=== PATIENT | female | born 1965 | race Caucasian/White ===

== ENCOUNTER → 2017-02-18 | Outpatient (CLI) | payer BC, OTHER ==
[~2017-02-18] MED LIST: AMT50 PO; ASCO10003 PO; CHOL20007 PO; COEN1CAP32 PO; GLUCTAB7 PO; LEVO88TA PO; LORA10CA2 PO; LOSA100T2 PO; MULT-506 PO; PRLSR20 PO; SIMV20TA2 PO
--- NOTE | 2017-02-19 12:09 | MAMMOGRAPHY REPORT ---
BILATERAL DIGITAL SCREENING MAMMOGRAM TOMOSYNTHESIS WITH CAD: 02/18/2017 CLINICAL HISTORY: Routine screening. Patient has no complaints. TECHNIQUE: Breast tomosynthesis in addition to standard 2D mammography was performed. Current study was also evaluated with a Computer Aided Detection (CAD) system. COMPARISON: Comparison is made to exams dated: 01/09/2016 mammogram, 01/04/2015 mammogram, 01/02/2014 mamm ogram, 12/17/2011 mammogram, 01/09/2011 mammogram, and 12/03/2010 mammogram - [facility] . BREAST COMPOSITION: There are scattered areas of fibroglandular density in both breasts. FINDINGS: The breast parenchymal pattern is similar to prior exams. No suspicious mass, architectura l distortion or cluster of suspicious microcalcifications is seen. IMPRESSION: ACR BI-RADS CATEGORY 1: NEGATIVE There is no mammographic evidence of malignancy. A 1 year screening mammogram is recommended. The pa tient will receive written notification of the results. Approximately 10% of breast cancers are not detected with mammography. A negative mammographic report should not delay biopsy if a clinically suggestive mass is present. Jenny Lopez M.D. ay/:02/18/2017 16:51:13 Land Checker: Marion ANGEL(Snow)(Sancho), [facility] letter sent: Normal 1/2 BI-RADS Code: ACR BI-RADS Category 1: Negative
== END | disposition home or self-care (01) ==
LOC: C.MAMM 16:14
PROVIDERS: ATTEND Specialist
DX: Z12.31 Encounter for screening mammogram for malignant neoplasm of breast (principal)

== ENCOUNTER → 2017-06-23 | Outpatient (CLI) | payer BC, OTHER ==
[~2017-06-23] MED LIST changes: +GADAVIST IV PRN
--- NOTE | 2017-06-23 22:28 | DIAGNOSTIC IMAGING REPORT ---
BRAIN COMBO FOR IAC CLINICAL HISTORY: Sudden onset left sided sensorineural hearing loss. COMPARISON STUDY: MRI of the brain December 21, [address] June 10, 2013. TECHNIQUE: Utilizing a 1.5 Mayelin magnet and dedicated coil, multiplanar, multi echo imaging of the brain was performed pre and postcontrast administration with thin cut imaging through the internal auditory canals. Injection of 9 cc of Gadavist IV was uneventful. FINDINGS: There are no areas of restricted diffusion. No acute intracranial hemorrhage, midline shift or mass effect is present. Ventricular system is normal. Brain volume is normal. Basilar cisterns are patent. There are no extra-axial collections. Flow-voids for the major intracranial vessels are present. There is no intracranial mass or pathologic enhancement. No mass or abnormal enhancement is identified within the internal auditory canals. Note is made of a moderate amount of fluid with associated enhancement within the left mastoid air cells. No areas of parenchymal signal abnormality are present. Calvarial signal is normal. IMPRESSION: 1. No acute intracranial findings. 2. No abnormalities within the internal auditory canals. 3. Moderate fluid and enhancement within the left mastoid air cells. While nonspecific, this could reflect mastoiditis. Electronically signed by: Sanjay Nelson M.D. 06/23/2017 10:27 PM Dictated Date/Time: 06/23/2017 10:17 PM
== END | disposition home or self-care (01) ==
LOC: C.MRI 20:27
PROVIDERS: ATTEND Physician Assistant
DX: H90.42 Sensorineural hearing loss, unilateral, left ear, with unrestricted hearing on the contralateral side (principal)

== ENCOUNTER → 2017-09-11 | Outpatient (CLI) | payer OTHER ==
[~2017-09-11] MED LIST changes: -GADAVIST IV PRN
--- NOTE | 2017-09-11 07:33 | DIAGNOSTIC IMAGING REPORT ---
BILIARY ULTRASOUND CLINICAL HISTORY: RUQ ABDOMINAL PAIN COMPARISON STUDY: No previous studies for comparison. FINDINGS: The pancreas appears sonographically normal. The gallbladder appears sonographically normal. There is no ductal dilatation. The common bile duct measures 5 mm. There is no right-sided hydronephrosis. No hepatic masses are visualized. IMPRESSION: Normal biliary ultrasound. Electronically signed by: Marco A Rodriguez M.D. 09/11/2017 7:31 AM Dictated Date/Time: 09/11/2017 7:31 AM
== END | disposition home or self-care (01) ==
LOC: C.ULTR 07:09
PROVIDERS: ATTEND Specialist
DX: R10.11 Right upper quadrant pain (principal)

== ENCOUNTER → 2018-02-25 | Outpatient (CLI) | payer OTHER ==
--- NOTE | 2018-02-25 15:59 | MAMMOGRAPHY REPORT ---
BILATERAL DIGITAL SCREENING MAMMOGRAM TOMOSYNTHESIS WITH CAD: 02/25/2018 TECHNIQUE: The study was acquired using full field digital technology and interpreted from soft copy. Breast tomosynthesis in addition to standard 2D mammography was performed. Current study was also ev aluated with a Computer Aided Detection (CAD) system. COMPARISON: Comparison is made to exams dated: 02/18/2017 mammogram, 01/09/2016 mammogram, 01/04/2015 mitzy mogram, 01/02/2014 mammogram, 12/30/2012 mammogram, and 12/17/2011 mammogram - [facility] er. BREAST COMPOSITION: There are scattered areas of fibroglandular density in both breasts. FINDINGS: No suspicious masses, calcifications, or areas of architectural distortion are noted in either breast . There has been no significant interval change compared to prior exams. Scattered bilateral benign-a ppearing calcifications are not significantly changed. IMPRESSION: ACR BI-RADS CATEGORY 2: BENIGN There is no mammographic evidence of malignancy. A 1 year screening mammogram is recommended.( [id number]) The patient will receive written notification of the results. Some breast cancers are not detected with mammography. A negative mammographic report should not juventino y biopsy if a clinically suggestive mass is present. Maris Lima M.D. ah/:02/25/2018 08:58:49 Immigration Lawyer: RT Hanna(Snow)(M), [facility] letter sent: Normal 1/2 BI-RADS Code: ACR BI-RADS Category 2: Benign
== END | disposition home or self-care (01) ==
LOC: C.MAMM 08:05
PROVIDERS: ATTEND Specialist
DX: Z12.31 Encounter for screening mammogram for malignant neoplasm of breast (principal)

== ENCOUNTER 2022-11-12 12:26 | Observation (INO) ==
[2022-11-12] MEDS ORDERED: SODIUM CHLORIDE 0.9% 1000ML 1,000 ML IV ONE (13:14)
--- NOTE | 2022-11-12 13:15 | Emergency Department Note ---
Impression & Plan Acute leg pain, Fluid collection (edema) in the arms, legs, hands and feet ED Provider Note NAME: KATELYNN FLOOD AGE: 57 SEX: F : 1965 ARRIVES VIA: Walk-In INFORMANT: Patient ED PROVIDER(S): Deepak Zeng DO CHIEF COMPLAINT: b/l foot pain HPI: Patient is a 57-year-old male who presents to the ER for pain on the right medial malleolus with erythema as well as circular pain on the left first metatarsal. She notes this has been present for the past 9 to 10 days. Has not changed in any way. Seen the PCP 4 separate times and placed on steroids and antibiotics. No improvement. Denies any fevers. No headache or change in vision. No chest pain or shortness of breath. No nausea, vomiting, or diarrhea. She notes she was sent in for further evaluation for CTs. She notes she can walk but it is painful. She denies any fevers, recent IVs or surgeries. She notes her inflammatory markers are up. She follow-up with her PCP got an ultrasound which was unremarkable as well. PAST MEDICAL HISTORY:See Below PAST SURGICAL HISTORY:See Below FAMILY HISTORY:See Below SOCIAL HISTORY:See Below HOME MEDICATIONS:See Below ALLERGIES:See Below VITALS:See Below PHYSICAL EXAMINATION: GENERAL: Sitting up in bed, alert, well appearing, well nourished, no distress, non-toxic EYE EXAM: normal conjunctiva. OROPHARYNX: no exudate, no erythema, lips, buccal mucosa, and tongue normal and mucous membranes are moist NECK: supple, no nuchal rigidity, no adenopathy, non-tender LUNGS: Clear to auscultation. Normal chest wall mechanics HEART: no murmurs, S1 normal and S2 normal ABDOMEN: abdomen soft, non-tender, normo-active bowel sounds, no masses, no rebound or guarding. UPPER EXTREMITIES: upper extremities are grossly normal. LOWER EXTREMITIES: Flexion-extension bilateral hips knees ankles and EHLs intact. No pain with axial loading. DPs and PTs 2 out of 4 bilaterally. Gross sensation intact. Circular band of erythema over the left first toe about 1 cm in width. Area of erythema about 5 cm x 5 cm over the right medial malleolus. Skin is intact. NEURO EXAM: Normal sensorium, cranial nerves II-XII grossly intact, normal speech, no gross weakness of arms, no gross weakness of legs. MEDICAL DECISION MAKING: Patient is a 57-year-old female with a past medical history of anxiety, depression, hyperlipidemia, hypertension who presents to the ER for erythema on right medial ankle and left toe. Referred in by PCP. External records were reviewed. Labs show no significant leukocytosis. Mild anemia at 11.7. BMP along with LFTs were unremarkable. Troponin was negative. Lipase was negative. UA was clean. Lyme was negative. Inflammatory markers were elevated as an outpatient. CT angios of the legs were negative. She does have a small fluid collection in the right posterior medial calf. Question of this could be infectious versus vasculitis versus rheumatologic but cannot be certain at this time. Symptoms have been getting worse while on antibiotics and steroids. Discussed with the hospitalist for further evaluation management and monitoring. Triage Nursing notes reviewed. Limited review of prior medical records performed Vital Signs: reviewed and remarkable for tachy Differential diagnosis: Cellulitis, abscess, MRSA infection, DVT, necrotizing fasciitis, dermatitis, drug eruption, allergic reaction, as well as other pathologies. ER treatment provided: See below Diagnostics interpreted by me include EKG and cardiac monitoring as listed below: -Cardiac Monitoring: An order was placed for continuous cardiac monitoring. The monitor shows a rate of 80 with sinus rhythm. -ECG: none -Laboratory studies:Interpreted by me as stated above in MDM and shown below. Imaging studies: Xrays: As interpreted by me:none CTs show: CT angio of the lower extremities as described above Consultation(s): Discussed with Dr. Reyes for further evaluation management and Procedures:none Critical Care: [None] Past Med/Surg History Medical History Acid reflux Allergic rhinitis due to cats Allergic rhinitis due to dogs Allergic rhinitis due to pollen Anxiety Cancer Chronic sinusitis Depression Diverticular disease Elevated C-reactive protein (CRP) Facet arthritis of cervical region Facet arthritis of lumbar region Gastric ulcer History of basal cell cancer History of COVID-19 Hyperlipidemia Hypertension Hypothyroidism Lumbar spondylosis Migraine headache Obesity Osteoarthritis Peptic ulcer disease Post traumatic stress disorder (PTSD) PVC's (premature ventricular contractions) Sensorineural hearing loss (SNHL) of left ear Sinus tachycardia Spondylolisthesis of lumbar region Tinnitus, left Vitamin D deficiency Surgical History H/O vaginal hysterectomy History of bilateral tubal ligation History of colonoscopy History of dilatation and curettage History of endoscopic sinus surgery History of esophagogastroduodenoscopy (EGD) History of tooth extraction S/P arthroscopy of left shoulder Family History Father Family hx of colon cancer Colorectal cancer Hypertension Grandfather (Maternal) Diabetes Myocardial infarction Grandfather (Paternal) Diabetes Mother Glaucoma Hypertension Stroke Grandmother (Paternal) Diabetes Colorectal cancer Daughter Malignant melanoma Family history of reaction to anesthesia Brother Myocardial infarction Denies family history of Ovarian cancer Prostate cancer Breast cancer Social History Smoking Status: Never smoker Second Hand Exposure: No; Hx Alcohol Use: Yes Alcohol type: wine Alcohol Intake Frequency: 2-3 x/Week Hx Substance Use: No Preferred Language: Icelandic Communication Ability: Effective Visual Impairment: No Limitations Hearing Ability: Normal Patient Registration Specialist Required: No Beliefs That Will Affect Care: None marital status: Current Living Situation: Spouse current occupational status: employed Feels Safe at Home: Yes Childhood Exposure to Second-Hand Smoke: No Diet Comment: regular caffeine: Yes (coffee) during the past year weight has: remained stable Dental Care, Regularly: Yes Physical Activity Frequency: 3-4 Times per Week Physical Activity Frequency Comment: walking Seatbelt Use: always Sunscreen Use: Yes Assistive Devices: Glasses Allergies Allergies Allergy/AdvReac Type Severity Reaction Status Date / Time nickel Allergy Intermediate Rash Verified 11/12/22 16:13 sumatriptan AdvReac Severe CHEST Verified 11/12/22 16:13 PAIN, STIFF NECK doxycycline AdvReac Intermediate DIZZY-HAS Verified 11/12/22 16:13 HAD SINCE W/O ISSUES naproxen [From Aleve] AdvReac Intermediate Abdominal Verified 11/12/22 16:13 Pain Relpax TABS Allergy Severe Pain and Uncoded 11/12/22 16:13 heat in head, throat, and chest areas Home Meds Home Medications Medication Instructions Recorded Confirmed ascorbic acid (vitamin C) 1,000 mg 1 tab PO HS 06/21/18 11/12/22 tablet (Vitamin C) [id number] 250 2 tab PO Q6H PRN Migraine Headache 06/21/18 11/12/22 mg-250 mg-65 mg tablet (Excedrin Migraine) cholecalciferol (vitamin D3) 125 5,000 unit PO HS 06/21/18 11/12/22 mcg (5,000 unit) tablet (Vitamin D3) multivitamin 1 tab PO QAM 06/21/18 11/12/22 coenzyme Q10 200 mg capsule (Co 100 mg PO HS 05/20/19 11/12/22 Q-10) ibuprofen 200 mg tablet (Advil) 200 - 400 mg PO Q6H PRN Pain 09/02/19 11/12/22 docusate sodium 100 mg capsule 100 mg PO HS PRN Constipation 05/25/20 11/12/22 (Colace) rosuvastatin 20 mg tablet (Crestor) 20 mg PO HS 11/23/20 11/12/22 metoprolol succinate 25 mg 37.5 mg PO HS 06/12/22 11/12/22 tablet,extended release 24 hr meclizine 25 mg tablet 25 mg PO DAILY PRN Dizziness 11/07/22 11/12/22 cetirizine 10 mg capsule (Zyrtec) 10 mg PO DAILY PRN Congestion 11/12/22 11/12/22 Previous Rx's Medication Instructions Recorded valacyclovir 1 gram tablet 2,000 mg PO Q12H PRN at onset of 11/04/19 (Valtrex) symptoms. Repeat PRN #30 tabs albuterol sulfate 90 mcg/actuation 2 puff inhalation QID PRN 11/23/20 aerosol inhaler (ProAir HFA) Shortness Of Breath #18 grams lorazepam 0.5 mg tablet (Ativan) 0.5 mg PO BID PRN Anxiety #60 tabs 11/23/20 amitriptyline 50 mg tablet 50 mg PO HS #90 tabs 06/12/22 duloxetine 60 mg capsule,delayed 60 mg PO HS #90 caps 06/12/22 release (Cymbalta) levothyroxine 88 mcg tablet 88 mcg PO QAM #90 tabs 06/12/22 (Synthroid) pantoprazole 40 mg tablet,delayed 40 mg PO DAILY acid reflux #90 tabs 06/12/22 release (Protonix) prednisone 10 mg tablet 10 mg PO .COMPLEX #38 tabs 11/04/22 cephalexin 500 mg capsule 500 mg PO TID 7 days #21 caps 11/07/22 tramadol 50 mg tablet 50 mg PO DAILY #20 tabs 11/10/22 Results & Data (ED) Vital Signs Vital Signs - 24 hr 11/12/22 12:37 11/12/22 13:28 11/12/22 14:08 Temperature 36.8 C Temperature Source Temporal Artery Scan Pulse Rate 100 H 88 Pulse Rate [Apical] 86 Pulse Rate from SpO2 Sensor Respiratory Rate 20 18 Respiratory Effort / Characteristics Non-Labored Spontaneous Non-Labored Spontaneous Respiratory Depth Normal Normal Respiratory Pattern Regular Blood Pressure 133/83 Blood Pressure [Right Arm] 133/89 Blood Pressure Mean 99 Blood Pressure Mean [Right Arm] 103 Pulse Oximetry 96 93 Oxygen Delivery Method Room Air Room Air Sepsis Recent Fever Within 48 Hours No Sepsis New/Unexplained Change in Mental Status No Sepsis Action Taken by Nursing No Action Required 11/12/22 14:22 11/12/22 14:23 11/12/22 15:00 Temperature Temperature Source Pulse Rate 93 H 88 Pulse Rate [Apical] 94 H Pulse Rate from SpO2 Sensor 92 H 89 Respiratory Rate 16 20 18 Respiratory Effort / Characteristics Non-Labored Spontaneous Respiratory Depth Normal Respiratory Pattern Blood Pressure 126/78 129/81 Blood Pressure [Right Arm] 126/78 Blood Pressure Mean 94 97 Blood Pressure Mean [Right Arm] 94 Pulse Oximetry 97 97 97 Oxygen Delivery Method Room Air Room Air Room Air Sepsis Recent Fever Within 48 Hours Sepsis New/Unexplained Change in Mental Status Sepsis Action Taken by Nursing 11/12/22 15:30 Temperature Temperature Source Pulse Rate 79 Pulse Rate [Apical] Pulse Rate from SpO2 Sensor 80 Respiratory Rate 21 Respiratory Effort / Characteristics Respiratory Depth Respiratory Pattern Blood Pressure 119/71 Blood Pressure [Right Arm] Blood Pressure Mean 87 Blood Pressure Mean [Right Arm] Pulse Oximetry 96 Oxygen Delivery Method Room Air Sepsis Recent Fever Within 48 Hours Sepsis New/Unexplained Change in Mental Status Sepsis Action Taken by Nursing Laboratory Data 11/12/22 13:20 11/12/22 13:20 Lab Results 11/12/22 11/12/22 11/12/22 Range/Units 13:20 13:20 13:20 WBC 9.89 (4.8-10.8) K/ul RBC 4.06 L (4.20-5.40) M/uL Hgb 11.7 L (12.0-16.0) g/dl POC Hgb (12.0-16.0) g/dl Hct 35.7 L (37.0-47.0) % POC Hct (37-47) % MCV 87.9 (80.0-100.0) fL MCH 28.8 (25.0-34.0) pg MCHC 32.8 (32.0-36.0) g/dL RDW Std Deviation 47.2 H (36.4-46.3) fL RDW Coeff of Kenny 14.6 H (11.5-14.5) % Plt Count 294 (130-400) K/uL MPV 11.2 (9.4-12.4) fL Immature Gran % (Auto) 0.8 % Neut % (Auto) 80.1 % Lymph % (Auto) 13.7 % Crawford % (Auto) 5.3 % Eos % (Auto) 0.0 % Baso % (Auto) 0.1 % Neut # (Auto) 7.93 H (1.40-6.50) K/uL Lymph # (Auto) 1.35 (1.2-3.4) K/uL Crawford # (Auto) 0.52 (0.11-0.59) K/uL Eos # (Auto) 0.00 (0-0.50) K/uL Baso # (Auto) 0.01 (0-0.2) K/uL Immature Gran # (Auto) 0.08 (0.01-0.20) K/uL POC Sodium (135-144) mmol/L Sodium 140 (136-145) mmol/L POC Potassium (3.3-5.0) mmol/L Potassium 4.2 (3.5-5.1) mmol/L POC Chloride (101-112) mmol/L Chloride 102 (98-107) mmol/L Carbon Dioxide 31 (21-32) mmol/L POC Total CO2 (24-31) mmol/L Anion Gap 7 (3-11) POC Anion Gap (16-25) mmol/L POC BUN (7-18) mg/dl BUN 11 (6-23) mg/dl Creatinine 0.60 (0.6-1.2) mg/dl POC Creatinine (0.6-1.3) mg/dl Est Cr Clr Drug Dosing 107.9 ml/min Est GFR ( Amer) 117.3 ml/min Est GFR (Non-Af Amer) 101.2 ml/min BUN/Creatinine Ratio 18.3 (10-20) Glucose 160 H (70-99(Fasting)) mg/dl POC Glucose (other) (70-99) mg/dl Calcium 9.0 (8.6-10.3) mg/dl POC Ioniz Calcium Mel (1.12-1.32) mmol/l Total Bilirubin 0.3 (0.2-1.0) mg/dl AST 12 L (13-39) U/L ALT 15 (7-52) U/L Alkaline Phosphatase 71 (34-104) U/L Troponin I High Sens 3.2 (0-14) pg/ml Total Protein 7.3 (6.0-8.3) gm/dl Albumin 4.0 (3.4-5.0) gm/dl Globulin 3.3 (2.5-4.0) gm/dl Albumin/Globulin Ratio 1.2 (0.9-2) Lipase 18 (11-82) U/L Urine Color Yellow Urine Appearance Clear (Clear) Urine pH 7.5 (4.5-7.5) Ur Specific [place] 1.011 (1.000-1.030) Urine Protein Negative (Negative) Urine Glucose (UA) Negative (Negative) Urine Ketones Negative (Negative) Urine Blood Negative (Negative) Urine Nitrite Negative (Negative) Urine Bilirubin Negative (Negative) Urine Urobilinogen Negative (Negative) Ur Leukocyte Esterase Negative (Negative) Lyme Disease IgG Ab (Negative) Lyme Disease IgM Ab (Negative) 11/12/22 11/12/22 Range/Units 13:20 13:25 WBC (4.8-10.8) K/ul RBC (4.20-5.40) M/uL Hgb (12.0-16.0) g/dl POC Hgb 12.9 (12.0-16.0) g/dl Hct (37.0-47.0) % POC Hct 38 (37-47) % MCV (80.0-100.0) fL MCH (25.0-34.0) pg MCHC (32.0-36.0) g/dL RDW Std Deviation (36.4-46.3) fL RDW Coeff of Kenny (11.5-14.5) % Plt Count (130-400) K/uL MPV (9.4-12.4) fL Immature Gran % (Auto) % Neut % (Auto) % Lymph % (Auto) % Crawford % (Auto) % Eos % (Auto) % Baso % (Auto) % Neut # (Auto) (1.40-6.50) K/uL Lymph # (Auto) (1.2-3.4) K/uL Crawford # (Auto) (0.11-0.59) K/uL Eos # (Auto) (0-0.50) K/uL Baso # (Auto) (0-0.2) K/uL Immature Gran # (Auto) (0.01-0.20) K/uL POC Sodium 140 (135-144) mmol/L Sodium (136-145) mmol/L POC Potassium 4.2 (3.3-5.0) mmol/L Potassium (3.5-5.1) mmol/L POC Chloride 101 (101-112) mmol/L Chloride (98-107) mmol/L Carbon Dioxide (21-32) mmol/L POC Total CO2 27 (24-31) mmol/L Anion Gap (3-11) POC Anion Gap 17.0 (16-25) mmol/L POC BUN 10 (7-18) mg/dl BUN (6-23) mg/dl Creatinine (0.6-1.2) mg/dl POC Creatinine 0.6 (0.6-1.3) mg/dl Est Cr Clr Drug Dosing ml/min Est GFR ( Amer) ml/min Est GFR (Non-Af Amer) ml/min BUN/Creatinine Ratio (10-20) Glucose (70-99(Fasting)) mg/dl POC Glucose (other) 160 H (70-99) mg/dl Calcium (8.6-10.3) mg/dl POC Ioniz Calcium Mel 1.16 (1.12-1.32) mmol/l Total Bilirubin (0.2-1.0) mg/dl AST (13-39) U/L ALT (7-52) U/L Alkaline Phosphatase (34-104) U/L Troponin I High Sens (0-14) pg/ml Total Protein (6.0-8.3) gm/dl Albumin (3.4-5.0) gm/dl Globulin (2.5-4.0) gm/dl Albumin/Globulin Ratio (0.9-2) Lipase (11-82) U/L Urine Color Urine Appearance (Clear) Urine pH (4.5-7.5) Ur Specific [place] (1.000-1.030) Urine Protein (Negative) Urine Glucose (UA) (Negative) Urine Ketones (Negative) Urine Blood (Negative) Urine Nitrite (Negative) Urine Bilirubin (Negative) Urine Urobilinogen (Negative) Ur Leukocyte Esterase (Negative) Lyme Disease IgG Ab Negative (Negative) Lyme Disease IgM Ab Negative (Negative) Administered Medications Discontinued Medications Sodium Chloride (Nss 1000ml) 1,000 mls @ 999 mls/hr IV .Q1H1M ONE Stop: 11/12/22 14:14 Last Infusion: 11/12/22 14:39 Dose: 0 mls/hr Documented By: Admin: 11/12/22 13:35 Dose: 999 mls/hr Documented By: HANNAH Ioversol (Optiray 320 500ml) 120 ml IV ONCE ONE Stop: 11/12/22 13:53 Last Admin: 11/12/22 13:52 Dose: 120 ml Documented By: WAQAS Imaging Data Radiologist's Impression: Aorta w/Runoff CTA 11/12/22 13:10 CT ANGIOGRAM OF THE ABDOMEN AND PELVIS WITH BILATERAL LOWER EXTREMITY RUNOFF CLINICAL HISTORY: Left toe and right ankle pain. COMPARISON STUDY: Abdominal ultrasound dated 09/02/2019. TECHNIQUE: Following the IV administration of 120 cc of Optiray 320, CT angiogram of the abdomen and pelvis with bilateral lower externally runoff was performed from the lung bases to the feet. Images are reviewed in the axial, sagittal, and coronal planes. 3-D MIPS images are created and assessed. IV contrast was administered without complication. A dose lowering technique was utilized adhering to the principles of ALARA. CT DOSE: 1635.25 mGy.cm FINDINGS: Lower chest: The heart is normal in size and without pericardial effusion. The lung bases are clear. Liver: The contrast-enhanced liver is normal in size, contour, and attenuation. There is no intrahepatic biliary ductal dilatation. The main portal veins are patent. Gallbladder: Unremarkable. Spleen: Normal in size and attenuation noting heterogeneous arterial phase enhancement. Pancreas: Unremarkable. Adrenal glands: Unremarkable. Kidneys: The contrast since kidneys are normal in size and without hydronephrosis. The kidneys enhance symmetrically. There is a 4 mm nonobstructing right renal calculus. Abdominal aorta and iliac arteries: The abdominal aorta is normal in course and caliber. No dissection is seen. The abdominal aorta and iliac arteries are widely patent. Major branches of the abdominal aorta: The celiac trunk, superior mesenteric, and inferior mesenteric arteries are widely patent. There is a replaced right hepatic artery, which arises from the superior mesenteric artery. The splenic artery is patent . Single bilateral renal arteries are widely patent. Right lower extremity runoff: The right common femoral artery is widely patent, as is the right profunda femoris artery. The right superficial femoral and popliteal arteries are widely patent. There is three-vessel runoff to the foot. The catheter arteries are widely patent. The dorsalis pedis artery is patent. Left lower extremity runoff: The left common femoral artery is widely patent, as is the left profunda femoris artery. The left superficial femoral and popliteal arteries are widely patent. There is three-vessel runoff to the foot. The calf arteries are widely patent. The dorsalis pedis artery is patent. Bowel: There is moderate colonic fecal retention. No bowel obstruction is seen. The appendix is well-visualized and normal. Peritoneum: There is no intraperitoneal free air or abdominal ascites. There is a fat-containing umbilical hernia. Lymphadenopathy: None. Pelvic viscera: The bladder is normal as visualized. The uterus is surgically absent. No adnexal lesion is seen. Skeletal structures: There is mild lumbosacral spondylosis. Sclerotic change is noted in the sacroiliac joints. No destructive bony lesions are seen. Bone islands are incidentally noted in both calcanei. Lower extremity soft tissues: There is right pretibial soft tissue swelling, as well as soft tissue edema around the right ankle. There is a serpiginous low attenuation fluid collection within the left posterior calf musculature, which extends inferiorly and medially to the medial malleolus. This measures approximately 15 cm in craniocaudal length, and up to 1.6 x 0.7 cm in maximum axial dimension as seen on image #[id number]. This tracks from the soleus, and inferiorly along the tibialis posterior muscle. The left lower extremity soft tissues are normal as visualized. IMPRESSION: 1. Unremarkable CT angiogram of the abdominal aorta and its major branches. 2. Unremarkable CT runoff of both legs. 3. No acute infectious or inflammatory findings are identified in the abdomen or pelvis. 4. Right-sided nephrolithiasis. 5. There is asymmetric soft tissue edema in the right calf and ankle as compared to the left. 6. There is a serpiginous fluid collection in the posterior/medial right calf as detailed above. This likely represents a muscular injury/intramuscular hematoma. The sterility of this fluid cannot be assessed by imaging and abscess is not excluded. Clinical correlation will be essential. 7. Additional findings as above. ACT 112: Negative or not required by law. Electronically signed by: Leandro Bhatia M.D. 11/12/2022 4:13 PM Discharge Plan Visit Data Chief Complaint: Foot Injury/Pain Stated Complaint: TROUBLE PUTTING WEIGHT ON FEET ED Provider: Deepak Zeng Discharge Problem: Acute leg pain, Fluid collection (edema) in the arms, legs, hands and feet Forms Stand Alone Forms: [facility] Prescriptions Prescriptions: No Action valacyclovir [Valtrex] 1 gram tablet 2,000 mg PO Q12H PRN (Reason: at onset of symptoms. Repeat PRN) Qty: 30 1RF coenzyme Q10 [Co Q-10] 200 mg capsule 100 mg PO HS rosuvastatin [Crestor] 20 mg tablet 20 mg PO HS albuterol sulfate [ProAir HFA] 90 mcg/actuation HFA aerosol inhaler 2 puff INHALATION QID PRN (Reason: Shortness Of Breath) Qty: 18 1RF lorazepam [Ativan] 0.5 mg tablet 0.5 mg PO BID PRN (Reason: Anxiety) Qty: 60 0RF metoprolol succinate 25 mg tablet extended release 24 hr 37.5 mg PO HS amitriptyline 50 mg tablet 50 mg PO HS Qty: 90 1RF duloxetine [Cymbalta] 60 mg capsule,delayed release(DR/EC) 60 mg PO HS Qty: 90 1RF levothyroxine [Synthroid] 88 mcg tablet 88 mcg PO QAM Qty: 90 1RF pantoprazole [Protonix] 40 mg tablet,delayed release (DR/EC) 40 mg PO DAILY Qty: 90 1RF meclizine 25 mg tablet 25 mg PO DAILY PRN (Reason: Dizziness) cephalexin 500 mg capsule 500 mg PO TID 7 Days Qty: 21 0RF Rx Instructions: STARTED 11/07/22 FOR 7 DAYS. tramadol 50 mg tablet 50 mg PO DAILY Qty: 20 0RF Zyrtec 10 mg capsule 10 mg PO DAILY PRN (Reason: Congestion) prednisone 10 mg tablet 10 mg PO .COMPLEX Qty: 38 0RF Rx Instructions: STARTED 11/04/22 FOR 14 DAYS. Take PO Take 40 mg x 5 days, 30 mg x 3 days, 20 mg x 3 days, 10 mg x 3 day, then d/c. multivitamin Tablet 1 tab PO QAM ascorbic acid (vitamin C) [Vitamin C] 1,000 mg Tablet 1 tab PO HS Excedrin Migraine 250-250-65 mg Tablet 2 tab PO Q6H PRN (Reason: Migraine Headache) cholecalciferol (vitamin D3) [Vitamin D3] 5,000 unit Tablet 5,000 unit PO HS docusate sodium [Colace] 100 mg capsule 100 mg PO HS PRN (Reason: Constipation) ibuprofen [Advil] 200 mg Tablet 200 - 400 mg PO Q6H PRN (Reason: Pain) Referrals Referrals: Hailee Macias DO [Primary Care Provider] -
[2022-11-12 13:39] LABS: iSTAT Creatinine 0.6 mg/dl (0.6-1.3); iSTAT Hemoglobin 12.9 g/dl (12.0-16.0); iSTAT Ionized Calcium 1.16 mmol/l (1.12-1.32); iSTAT Potassium 4.2 mmol/L (3.3-5.0)
[2022-11-12] MEDS ORDERED: OPTIRAY 320 500ml IV ONE (13:52)
[2022-11-12 13:57] LABS: Appearance Urine Clear (Clear); Bilirubin Urine Negative (Negative); Blood Urine Negative (Negative); Color Urine Yellow; Glucose Urine UA Negative (Negative); Ketones Urine Negative (Negative); Leukocyte Esterase Urine Negative (Negative); Nitrite Urine Negative (Negative); Protein Urine Negative (Negative); Specific Gravity Urine 1.011 (1.000-1.030); Urobilinogen Urine Negative (Negative); pH Urine 7.5 (4.5-7.5)
[2022-11-12 14:07] LABS: Basophils # (auto) 0.01 K/uL (0-0.2); Basophils % (auto) 0.1 %; Hematocrit (blood only) 35.7 % (37.0-47.0); Hemoglobin 11.7 g/dl (12.0-16.0); Immature Granulocytes # (auto) 0.08 K/uL (0.01-0.20); Immature Granulocytes % (auto) 0.8 %; Lymphocytes # (auto) 1.35 K/uL (1.2-3.4); Lymphocytes % (auto) 13.7 %; Mean Corpuscular Hemoglobin 28.8 pg (25.0-34.0); Mean Corpuscular Hgb Conc 32.8 g/dL (32.0-36.0); Mean Corpuscular Volume 87.9 fL (80.0-100.0); Mean Platelet Volume 11.2 fL (9.4-12.4); Monocytes # (auto) 0.52 K/uL (0.11-0.59); Monocytes % (auto) 5.3 %; Neutrophils # (auto) 7.93 K/uL (1.40-6.50); Neutrophils % (auto) 80.1 %; Platelet Count 294 K/uL (130-400); RDW Coefficient of Variation 14.6 % (11.5-14.5); RDW Standard Deviation 47.2 fL (36.4-46.3); Red Blood Count 4.06 M/uL (4.20-5.40); White Blood Count 9.89 K/ul (4.8-10.8)
[2022-11-12 14:11] LABS: Albumin Globulin Ratio 1.2 (0.9-2); BUN Creatinine Ratio 18.3 (10-20); Bilirubin,Total 0.3 mg/dl (0.2-1.0); Creatinine Clr Calc Pharmacy 107.9 ml/min; Est GFR (African American) 117.3 ml/min; Est GFR (Non-African American) 101.2 ml/min; Globulin 3.3 gm/dl (2.5-4.0); Potassium 4.2 mmol/L (3.5-5.1); Total Protein 7.3 gm/dl (6.0-8.3)
[2022-11-12 14:15] LABS: Troponin I High Sensitivity 3.2 pg/ml (0-14)
[2022-11-12 15:47] LABS: Lyme Ab IgG w/WB Rflx Negative (Negative); Lyme Ab IgM w/WB Rflx Negative (Negative)
--- NOTE | 2022-11-12 16:14 | CT Scan Report ---
CT ANGIOGRAM OF THE ABDOMEN AND PELVIS WITH BILATERAL LOWER EXTREMITY RUNOFF CLINICAL HISTORY: Left toe and right ankle pain. COMPARISON STUDY: Abdominal ultrasound dated 09/02/2019. TECHNIQUE: Following the IV administration of 120 cc of Optiray 320, CT angiogram of the abdomen and pelvis with bilateral lower externally runoff was performed from the lung bases to the feet. Images a re reviewed in the axial, sagittal, and coronal planes. 3-D MIPS images are created and assessed. IV contrast was administered without complication. A dose lowering technique was utilized adhering to t he principles of ALARA. CT DOSE: 1635.25 mGy.cm FINDINGS: Lower chest: The heart is normal in size and without pericardial effusion. The lung bases are clear. Liver: The contrast-enhanced liver is normal in size, contour, and attenuation. There is no intrahepa tic biliary ductal dilatation. The main portal veins are patent. Gallbladder: Unremarkable. Spleen: Normal in size and attenuation noting heterogeneous arterial phase enhancement. Pancreas: Unremarkable. Adrenal glands: Unremarkable. Kidneys: The contrast since kidneys are normal in size and without hydronephrosis. The kidneys enhanc e symmetrically. There is a 4 mm nonobstructing right renal calculus. Abdominal aorta and iliac arteries: The abdominal aorta is normal in course and caliber. No dissectio n is seen. The abdominal aorta and iliac arteries are widely patent. Major branches of the abdominal aorta: The celiac trunk, superior mesenteric, and inferior mesenteric arteries are widely patent. There is a replaced right hepatic artery, which arises from the superior mesenteric artery. The splenic artery is patent . Single bilateral renal arteries are widely patent. Right lower extremity runoff: The right common femoral artery is widely patent, as is the right profu nda femoris artery. The right superficial femoral and popliteal arteries are widely patent. There is three-vessel runoff to the foot. The catheter arteries are widely patent. The dorsalis pedis artery i s patent. Left lower extremity runoff: The left common femoral artery is widely patent, as is the left profunda femoris artery. The left superficial femoral and popliteal arteries are widely patent. There is thre e-vessel runoff to the foot. The calf arteries are widely patent. The dorsalis pedis artery is patent . Bowel: There is moderate colonic fecal retention. No bowel obstruction is seen. The appendix is well -visualized and normal. Peritoneum: There is no intraperitoneal free air or abdominal ascites. There is a fat-containing umbi lical hernia. Lymphadenopathy: None. Pelvic viscera: The bladder is normal as visualized. The uterus is surgically absent. No adnexal lesi on is seen. Skeletal structures: There is mild lumbosacral spondylosis. Sclerotic change is noted in the sacroili ac joints. No destructive bony lesions are seen. Bone islands are incidentally noted in both calcanei . Lower extremity soft tissues: There is right pretibial soft tissue swelling, as well as soft tissue e annie around the right ankle. There is a serpiginous low attenuation fluid collection within the left posterior calf musculature, which extends inferiorly and medially to the medial malleolus. This measu res approximately 15 cm in craniocaudal length, and up to 1.6 x 0.7 cm in maximum axial dimension as seen on image #[id number]. This tracks from the soleus, and inferiorly along the tibialis posterior muscle. The left lower extremity soft tissues are normal as visualized. IMPRESSION: 1. Unremarkable CT angiogram of the abdominal aorta and its major branches. 2. Unremarkable CT runoff of both legs. 3. No acute infectious or inflammatory findings are identified in the abdomen or pelvis. 4. Right-sided nephrolithiasis. 5. There is asymmetric soft tissue edema in the right calf and ankle as compared to the left. 6. There is a serpiginous fluid collection in the posterior/medial right calf as detailed above. This likely represents a muscular injury/intramuscular hematoma. The sterility of this fluid cannot be as sessed by imaging and abscess is not excluded. Clinical correlation will be essential. 7. Additional findings as above. ACT 112: Negative or not required by law. Electronically signed by: Leandro Bhatia M.D. 11/12/2022 4:13 PM
[2022-11-12] MEDS ORDERED: cefTRIAXone SODIUM 2,000 MG/70 ML BAG IV STA (16:18)
[2022-11-12 17:18] LABS: C Reactive Protein 8.48 mg/dl (0-0.5)
--- NOTE | 2022-11-12 18:49 | History & Physical Report ---
Date of Service November 12, 2022 Assessment & Plan (1) Swollen joint: Plan: Etiology is not entirely clear Initially things like gout were quite reasonably entertained, but her failure to improve on NSAIDs and corticosteroids (particularly at a reasonably high dose) makes that unlikely; similarly, other autoimmune/immune mediated inflammatory arthropathies seem less likely given the lack of response to NSAIDs and steroidsas well as the erythematous patch on her medial ankle. ER gave consideration to endocarditis with septic embolibut her lack of constitutional symptoms, the fact that is been going on for 2 weeks with no other embolic phenomenon noted anywhere, and her lack of generally seeming ill other than her foot and ankle hurting makes this unlikely. Blood cultures have been checked prior to antibiotics and are pendingif the blood cultures are neg ative, barring any outlandish turns in her clinical course, it seems that no further work-up for this would be needed Given where we live, Lyme is certainly a possibilityher Lyme screen is negative, she is about 2 weeks into illness, so 1 would expect it to probably be positive, although not definitively so, beyond that we are in such an endemic area that it should still be a diagnosis of considerationand if the further work-up has no specific yield, we discussed an empiric course of doxycycline (she was on Keflex for a few dayswhich could treat Lyme, and it may simply not have been enough time for improvement, but if we proceed with treating empirically for tickbornewould utilize Doxyboth for more proven efficacy, as well as more broad tick based coverage) At the same time, what we really know for sure is that her joint, and the skin on the medial portion of her other ankle, both seem to be inflamed and painful. Working up further seems to be likely to have higher yield than further empiric treatment at this point in her clinical course. We will obtain MRI of left foot with attention to great toe, and ask orthopedics if they would be able to aspirate any of the joint fluid. Discussed with patient if that is not of yield, may also consider a skin biopsy of her right ankle skin lesion. Follow- up CRP in a.m. to look for rate of change (2) Skin rash: Plan: As above (3) Hypertension: Plan: Blood pressure reasonable (4) Hypothyroidism: Plan: Recent TSH normal (5) DVT prophylaxis: Plan: Ambulation (6) Discharge planning issues: Plan: Med/surge, [facility] hospitalist service, anticipate ability to discharge home. 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 this progressed and worsened over the last 2wks - although notes that at first she thinks it was the whole distal toe that was swollen, now it's the IP joint almost only - worsening in spite of NSAIDs, prednisone (40mg x5 days and now on a tapering dose but still at 30) and keflex (500mg TID started on 11/07). the day after her L great toe started swelling, she also had red areas of skin - ~3 patches about the size of a nickel, on the inside of her R ankle. during the last 2 wks, those areas have grown and coalesced into one large ~7cm round patch. hot and tender, "feels like a sunburn". again this worsening despite above treatment as well. no f/c/s. no other rashes or skin lesions. no other symptoms at all that she can relate - except for feeling dizzy - started about a day after starting prednisone, responded to meclizine. she is still taking the meclizine but hasn't really had recurrence. Wonders if it could be related to COVIDbut notes that she had COVID about 10 weeks ago for the second time, far more mild than the first time, and other than a degree of fatigue has really not had any lasting symptoms. seen 11/04 - suspected gout. prednisone, NSAIDs 11/07 added keflex 11/10 further w/u ordered, ongoing symptomatic control today sent to ER w/u 11/11 CBC normal except Hgb 11.9, ESR 67, CMP normal except glucose 122 (non fasting, on steroids), TSH 0.79, UA normal sp grav 1.020, incidentally a year ago TA, RF, CCP IgG neg 11/06 R ankle xray showing soft tissue swelling, no bony abnormality, L great toe Xray normal 11/07 venous doppler negative for DVT dawson in ER today showing similar labs to above, ESR 66, CRP 8.5; CTA just with soft tissue swelling noted but no vascular disease. was given rocephin but blood cultures taken prior Allergies Allergy/AdvReac Type Severity Reaction Status Date / Time nickel Allergy Intermediate Rash Verified 11/12/22 16:13 sumatriptan AdvReac Severe CHEST Verified 11/12/22 16:13 PAIN, STIFF NECK doxycycline AdvReac Intermediate DIZZY-HAS Verified 11/12/22 16:13 HAD SINCE W/O ISSUES naproxen [From Aleve] AdvReac Intermediate Abdominal Verified 11/12/22 16:13 Pain Relpax TABS Allergy Severe Pain and Uncoded 11/12/22 16:13 heat in head, throat, and chest areas Home Medications Medication Instructions Recorded Confirmed Type ascorbic acid (vitamin C) 1,000 mg 1 tab PO HS 06/21/18 11/12/22 History tablet (Vitamin C) [id number]-[id number]-[id number] 250 2 tab PO Q6H PRN Migraine Headache 06/21/18 11/12/22 History mg-250 mg-65 mg tablet (Excedrin Migraine) cholecalciferol (vitamin D3) 125 5,000 unit PO HS 06/21/18 11/12/22 History mcg (5,000 unit) tablet (Vitamin D3) multivitamin 1 tab PO QAM 06/21/18 11/12/22 History coenzyme Q10 200 mg capsule (Co 100 mg PO HS 05/20/19 11/12/22 History Q-10) ibuprofen 200 mg tablet (Advil) 200 - 400 mg PO Q6H PRN Pain 09/02/19 11/12/22 History valacyclovir 1 gram tablet 2,000 mg PO Q12H PRN at onset of 11/04/19 11/12/22 Rx (Valtrex) symptoms. Repeat PRN #30 tabs docusate sodium 100 mg capsule 100 mg PO HS PRN Constipation 05/25/20 11/12/22 History (Colace) albuterol sulfate 90 mcg/actuation 2 puff inhalation QID PRN 11/23/20 11/12/22 Rx aerosol inhaler (ProAir HFA) Shortness Of Breath #18 grams lorazepam 0.5 mg tablet (Ativan) 0.5 mg PO BID PRN Anxiety #60 tabs 11/23/20 11/12/22 Rx rosuvastatin 20 mg tablet (Crestor) 20 mg PO HS 11/23/20 11/12/22 History amitriptyline 50 mg tablet 50 mg PO HS #90 tabs 06/12/22 11/12/22 Rx duloxetine 60 mg capsule,delayed 60 mg PO HS #90 caps 06/12/22 11/12/22 Rx release (Cymbalta) levothyroxine 88 mcg tablet 88 mcg PO QAM #90 tabs 06/12/22 11/12/22 Rx (Synthroid) metoprolol succinate 25 mg 37.5 mg PO HS 06/12/22 11/12/22 History tablet,extended release 24 hr pantoprazole 40 mg tablet,delayed 40 mg PO DAILY acid reflux #90 tabs 06/12/22 11/12/22 Rx release (Protonix) prednisone 10 mg tablet 10 mg PO .COMPLEX #38 tabs 11/04/22 11/12/22 Rx cephalexin 500 mg capsule 500 mg PO TID 7 days #21 caps 11/07/22 11/12/22 Rx meclizine 25 mg tablet 25 mg PO DAILY PRN Dizziness 11/07/22 11/12/22 History tramadol 50 mg tablet 50 mg PO DAILY #20 tabs 11/10/22 11/12/22 Rx cetirizine 10 mg capsule (Zyrtec) 10 mg PO DAILY PRN Congestion 11/12/22 11/12/22 History Past Med/Surg History Medical History Acid reflux Allergic rhinitis due to cats Allergic rhinitis due to dogs Allergic rhinitis due to pollen LAST RESCUE INHALER USE MONTHS AGO Anxiety Cancer BASAL CELL NECK AREA Chronic sinusitis Depression Diverticular disease Elevated C-reactive protein (CRP) Facet arthritis of cervical region Facet arthritis of lumbar region Gastric ulcer HX 4-5 YRS AGO-RESOLVED History of basal cell cancer History of COVID-19 DX'D 07/2020 URGENT CARE? [place]? BODY ACHES, SOB, HEADACHE, LOSS TASTE AND SMELL-RECOVERED AT HOME-ENDURED BRAIN FOG FOR AWHILE-RESOLVED Hyperlipidemia Hypertension Hypothyroidism Lumbar spondylosis Migraine headache Obesity Osteoarthritis Peptic ulcer disease Post traumatic stress disorder (PTSD) PVC's (premature ventricular contractions) Sensorineural hearing loss (SNHL) of left ear Sinus tachycardia F/U DR SUBHASH WEEKS Spondylolisthesis of lumbar region Tinnitus, left Vitamin D deficiency Surgical History H/O vaginal hysterectomy History of bilateral tubal ligation History of colonoscopy History of dilatation and curettage History of endoscopic sinus surgery History of esophagogastroduodenoscopy (EGD) History of tooth extraction S/P arthroscopy of left shoulder Family History Father Family hx of colon cancer Colorectal cancer Hypertension Grandfather (Maternal) , AGE 49 Diabetes Myocardial infarction Grandfather (Paternal) Diabetes Mother Glaucoma Hypertension Stroke Grandmother (Paternal) Diabetes Colorectal cancer Daughter Malignant melanoma Family history of reaction to anesthesia "VERY SLOW TO WAKE UP" Brother Myocardial infarction Denies family history of Ovarian cancer Prostate cancer Breast cancer Social History Smoking Status: Never smoker Second Hand Exposure: No; Hx Alcohol Use: Yes Alcohol type: wine Alcohol Intake Frequency: 2-3 x/Week Hx Substance Use: No Preferred Language: Bengali Communication Ability: Effective Visual Impairment: No Limitations Hearing Ability: Normal Flag Signalman Required: No Beliefs That Will Affect Care: None marital status: Current Living Situation: Spouse current occupational status: employed Feels Safe at Home: Yes Childhood Exposure to Second-Hand Smoke: No Diet Comment: regular caffeine: Yes (coffee) during the past year weight has: remained stable Dental Care, Regularly: Yes Physical Activity Frequency: 3-4 Times per Week Physical Activity Frequency Comment: walking Seatbelt Use: always Sunscreen Use: Yes Assistive Devices: Glasses Review of Systems Review of Systems: All systems reviewed & are unremarkable except as noted in HPI & below Physical Exam Physical Exam: In general she is awake alert oriented pleasant no distress. HEENT normocephalic atraumatic mucous membranes moistno conjunctival or subungual lesions. Neck is supple. Cardio is regular without rubs murmurs or gallops. Lungs are clear to auscultation bilaterally no rales rhonchi or wheeze with good effort. Skin other than below under extremities has no other rashes, no pallor no icterus no streaks nodes or other lesions. Neuro shows cranial nerves II through XII be grossly intact gross motor and sensory intact. Extremity/musculoskeletalher left great toe IP joint appears to be swollen and has a purplish red erythema, it is tender with restricted range of motion, the remainder of her toe actually appears benign and she has no tenderness at the MP joint. Medial to her right ankle and a little bit posterior to the malleolus there is about a 7 cm area of warm not quite erythematous salmon-colored skin that is tender with a mild degree of palpable swelling, but no underlying fluctuance. Results & Data Results & Data Vital Signs (Past 12 Hours) Vital Signs Temp Pulse Pulse Resp BP BP Pulse Ox 11/12/22 18:07 73 11/12/22 16:30 86 24 144/98 H 98 11/12/22 16:00 77 20 117/66 96 11/12/22 15:30 79 21 119/71 96 11/12/22 15:00 88 18 129/81 97 11/12/22 14:23 93 H 20 126/78 97 11/12/22 14:22 94 H 16 126/78 97 11/12/22 14:08 88 11/12/22 13:28 86 18 133/89 93 11/12/22 12:37 98.2 F 100 H 20 133/83 96 O2 Del Method 11/12/22 18:07 11/12/22 16:30 Room Air 11/12/22 16:00 Room Air 11/12/22 15:30 Room Air 11/12/22 15:00 Room Air 11/12/22 14:23 Room Air 11/12/22 14:22 Room Air 11/12/22 14:08 11/12/22 13:28 Room Air 11/12/22 12:37 Room Air Code Status & VTE Plan VTE Prophylaxis Plan VTE Prophylaxis will be ordered: No Reason for no VTE drug order: Treatment not indicated PG Care Time/CCT Total # of Minutes Spent Total Time Spent with Patient: Total time spent is greater than 50% in coordination of care (as documented) at patient's floor/unit and/or counseling patient: Coding Level of Care Code 96440 INT INP/OBS CARE 3/75MIN Diagnoses Swollen joint M25.40 Skin rash R21 Hypertension I10 Hypothyroidism E03.9 DVT prophylaxis Z29.9 Discharge planning issues Z02.9
[2022-11-12] MEDS ORDERED: KETOROLAC TROMETHAMINE 15 MG/ML VIAL ONE (20:07)
[2022-11-12] MEDS ORDERED: MECLIZINE HCL 25 MG TAB PO PRN (20:36)
[2022-11-12] MEDS ORDERED: ALUMINUM/MAGNESIUM SUSP 30 ML UDC PO PRN (20:36)
[2022-11-12] MEDS ORDERED: ONDANSETRON INJ 2 MG/ML 2 ML VIAL IV PRN (20:36)
[2022-11-12] MEDS ORDERED: ALBUTEROL HFA 8 GM INHALER INH PRN (20:36)
[2022-11-12] MEDS ORDERED: MAGNESIUM HYDROXIDE SUSP 30 ML UDC PO PRN (20:36)
[2022-11-12] MEDS ORDERED: LORazepam 0.5 MG TAB PO PRN (20:36)
[2022-11-12] MEDS ORDERED: DOCUSATE SODIUM 100 MG CAP PO PRN (20:36)
[2022-11-12] MEDS ORDERED: POLYETHYLENE (MIRALAX) 17 GM PACK PO PRN (20:36)
[2022-11-12] MEDS ORDERED: CETIRIZINE HCL 10 MG TABLET PO PRN (20:46)
[2022-11-12] MEDS ORDERED: NON-FORMULARY MEDICATION (Coenzyme Q10 [Co Q-10] 200 mg capsule) PO SCH (21:00)
[2022-11-12] MEDS: DULoxetine HCL 60 MG CAP PO SCH (21:41)
[2022-11-12] MEDS: AMITRIPTYLINE HCL 50 MG TAB PO SCH (21:41)
[2022-11-12] MEDS: ASCORBIC ACID 500 MG TAB PO SCH (21:41)
[2022-11-12] MEDS: CHOLECALCIFEROL 5,000 UNITS 125 MCG TAB PO SCH (21:41)
[2022-11-12] MEDS: METOPROLOL SUCC 25MG EXT REL TAB PO SCH (21:42)
[2022-11-12] MEDS: ROSUVASTATIN CALCIUM 20 MG TAB PO SCH (21:42)
--- NOTE | 2022-11-12 23:10 | Magnetic Resonance Report ---
Exam(s): MRI LEFT FOOT Without Contrast EXAM: MR Left Lower Extremity Without Intravenous Contrast, Foot CLINICAL HISTORY: Reason for exam: great toe IP refractory swelling. TECHNIQUE: Multiplanar magnetic resonance images of the left foot without intravenous contrast. COMPARISON: No relevant prior studies available. FINDINGS: Soft tissue swelling of the great toe, because of her cellulitis. No definite ulceration or wound identified. No MR evidence of osteomyelitis (no marrow edema or marrow infiltration of the great toe). No fluid collection or abscess. Mild first, second, third, and fourth intermetatarsal bursitis. No metatarsal fracture. No Lisfranc malalignment. Minimal dorsal soft tissue swelling of the medial midfoot. The regional flexor and extensor muscles are intact. IMPRESSION: Soft tissue swelling of the great toe, because of her cellulitis. No definite ulceration or wound identified. No MR evidence of osteomyelitis (no marrow edema or marrow infiltration of the great toe). No fluid collection or abscess. Electronically signed by: Frank Maki MD 11/12/22 23:09 PM
[2022-11-13 00:37] LABS: Appearance Urine Clear (Clear); Bilirubin Urine Negative (Negative); Blood Urine Negative (Negative); Color Urine Yellow; Glucose Urine UA Negative (Negative); Ketones Urine Negative (Negative); Leukocyte Esterase Urine Negative (Negative); Nitrite Urine Negative (Negative); Protein Urine Negative (Negative); Specific Gravity Urine 1.021 (1.000-1.030); Urobilinogen Urine Negative (Negative); pH Urine 7.5 (4.5-7.5)
[2022-11-13] MEDS: MoRPHine SULFATE 2 MG/ML CARP IV PRN ×2 (03:54→17:00)
[2022-11-13] MEDS: LEVOTHYROXINE SODIUM 88 MCG TABLET PO SCH (05:44)
[2022-11-13] MEDS: KETOROLAC TROMETHAMINE 15 MG/ML VIAL IV PRN ×2 (05:44→15:19)
[2022-11-13 06:20] LABS: Basophils # (auto) 0.02 K/uL (0-0.2); Basophils % (auto) 0.2 %; Eosinophils # (auto) 0.13 K/uL (0-0.50); Eosinophils % (auto) 1.3 %; Hematocrit (blood only) 33.2 % (37.0-47.0); Hemoglobin 10.5 g/dl (12.0-16.0); Immature Granulocytes # (auto) 0.04 K/uL (0.01-0.20); Immature Granulocytes % (auto) 0.4 %; Lymphocytes # (auto) 3.49 K/uL (1.2-3.4); Lymphocytes % (auto) 34.3 %; Mean Corpuscular Hemoglobin 28.5 pg (25.0-34.0); Mean Corpuscular Hgb Conc 31.6 g/dL (32.0-36.0); Mean Corpuscular Volume 90.2 fL (80.0-100.0); Mean Platelet Volume 10.1 fL (9.4-12.4); Monocytes # (auto) 0.94 K/uL (0.11-0.59); Monocytes % (auto) 9.2 %; Neutrophils # (auto) 5.56 K/uL (1.40-6.50); Neutrophils % (auto) 54.6 %; Platelet Count 296 K/uL (130-400); RDW Coefficient of Variation 14.7 % (11.5-14.5); RDW Standard Deviation 48.9 fL (36.4-46.3); Red Blood Count 3.68 M/uL (4.20-5.40); White Blood Count 10.18 K/ul (4.8-10.8)
--- NOTE | 2022-11-13 07:31 | Hospitalist Progress Note ---
Date of Service November 13, 2022 Assessment & Plan (1) Swollen joint: Plan: Foot MRI showed soft tissue swelling because of her cellulitis. No definite ulceration or wound identified. No evidence of osteomyelitis, no fluid collection or abscess. CBC and CMP grossly benign. CRP was elevated at 8.4 which then decreased to 6.5 on 11/13. Ortho consulted and no joint aspiration was recommended at this time. Lyme was negative at this time. Though still may be likely the patient has Lyme if recent infection. Was on Keflex for a few days. We will start on doxycycline 100 mg twice daily and prednisone 40 mg once a day. We will see how patient responds to therapy overnight and consider discharging tomorrow. (2) Skin rash: Plan: As above (3) Hypertension: Plan: Stable (4) Hypothyroidism: Plan: Recent TSH normal. (5) DVT prophylaxis: Plan: Ambulation (6) Discharge planning issues: Plan: Most likely will DC tomorrow on doxycycline and prednisone. Admission and Anticipated Discharge Date Admission Date: November 12, 2022 Supervising Physician Co-Signing Physician Notes I personally examined the patient and verified all monzon points of history and exam, discussed case, and agree with decision making with Dr Wick Toe feels worse and is more swollen today. Discussed with orthopedic surgery. Reviewed MRI. Reviewed CRP and CBC. Vitals noted, now almost entirety of left great toe from interphalangeal joint to MP joint appears red and swollen, patch of erythema/salmon-colored redness on the inside of her right ankle seems to be more or less unchanged. Toe swelling, skin changesgiven that she has worsened a good bit overnight, I suspect the steroids were helping more than she/we were giving creditthis does reopen the possibility for rheumatologic/immune mediated inflammatory conditions. At the same time, we are in a very endemic area for Lyme, will initiate empiric doxycycline. Restart prednisone. If she is showing decent improvementoutpatient PCP follow-up/rheumatology follow-up if she does not get all the way better with doxycycline; if she shows no improvement or worsening, may need assistance rheumatology inpatient. That said, given that MRI did not seem to show much of any actual joint swelling, it seems less likely that this is a joint related/rheumatologic issuegiven that it seems more skin related. Still give consideration to biopsy of right ankle medial skin if needed otherwise as above Subjective Patient was seen bedside this morning. Patient complains of a bad headache that got better with Toradol. She continues to have pain in her left foot without overnight. Area on the foot and ankle remain tender to the touch. Review of Systems Review of Systems: All systems reviewed & are unremarkable except as noted in Subjective Physical Exam Constitutional: WD/WN, vitals as above Eyes: PERRL, conjunctivae normal, anicteric sclerae Respiratory: normal respiratory effort, lungs clear to auscultation Cardiovascular: RRR, no murmur, no edema Gastrointestinal (Abdomen): normal bowel sounds, soft, nontender, no hepatosplenomegaly Musculoskeletal: Slight erythematous swollen tender left great toe IP joint Erythematous swollen tender on the posterior aspect of the right foot overlying Achilles Neurologic: patellar DTR's 2+ bilat, sensation intact Psychiatric: A+Ox3, euthymic affect Results & Data Results & Data Vital Signs (Past 12 Hours) Vital Signs Temp Pulse Pulse Resp BP Pulse Ox Pulse Ox 11/12/22 20:20 11/12/22 20:20 99 11/12/22 20:20 11/12/22 20:20 36.5 C 84 20 150/90 H 99 11/12/22 20:14 11/12/22 20:11 79 17 173/115 H 97 O2 Del Method O2 Del Method 11/12/22 20:20 Room Air 11/12/22 20:20 Room Air 11/12/22 20:20 Room Air 11/12/22 20:20 Room Air 11/12/22 20:14 Room Air 11/12/22 20:11 Room Air Resident Activity Tracking Resident Involvement: Resident Care Provided Care Provided: Adult Hospital Medicine
[2022-11-13] MEDS: MULTIVITAMIN TAB PO SCH (09:14)
[2022-11-13] MEDS: PANTOprazole 40 MG TAB PO SCH (09:14)
[2022-11-13] MEDS: traMADol HCL 50 MG TABLET PO SCH (09:16)
[2022-11-13] MEDS: IBUPROFEN 200 MG TAB PO PRN ×2 (12:20→20:35)
--- NOTE | 2022-11-13 14:14 | Orthopedic Consultation ---
Date of Service November 13, 2022 Assessment & Plan (1) Pain of left great toe: (2) Swollen joint: 57-year-old female with no history of gout or inflammatory arthropathy presents with diffuse inflammatory polyarthralgias with overlying skin changes. No evidence of sepsis. -Would not recommend attempting joint aspiration. MRI not supportive of significant joint effusion and procedure would be technically challenging given small size of joint and likely low yield. -Continue w/ periodic ice and elevation. -Can consider small course of scheduled Toradol since she had some symptomatic improvement, though she endorses history of previous peptic ulcers, presumably from NSAID use. -Can be WBAT on LLE. Recommend utilizing post operative shoe for assistance with weight bearing. -Don't disagree w/ empiric treatment for Lyme disease with doxycycline. -Consider rheumatology input Discussed w/ Dr. Christensen. Call with any questions. History of Present Illness Reason for Consultation: L great toe painful swelling . Requesting Physician: Deepak Reyes DO . Attending Physician: Deepak Reyes DO Pt is a 57 y/o/f with PMHx of HTN, DLD, Hypothyroidism, PTSD, depression/anxiety, GERD, peptic ulcers who was admitted yesterday for L great toe pain and swelling. She has been experiencing this for about two weeks, initially started as mild soreness and has now progressed to severe pain and swelling that limits weightbearing. She has been worked up and treated as an outpatient for both gout and infection. She has been treated with OTC NSAIDs and oral prednisone which did nothing to improve her symptoms. Sent to ED for further evaluation on 11/11. Work up to date has showed normal WBC, elevated ESR and CRP, blood cultures that are NGTD, negative Lyme disease testing. She has also had an MRI of her L foot that shows inflammatory signal surrounding the soft tissues of the IP joint consistent with cellulitis with no abscess/fluid collections, significant effusion, or findings consistent with osteomyelitis. We are consulted regarding consideration of joint aspiration and any further recommendations regarding work up and treatment of her toe pain. Seen at bedside, she is in obvious pain with any manipulation of the toe but is otherwise asymptomatic. Denies subjective fever, chills, rigors, chest pain, SOB, abd pain, nausea. She notes that she had some improvement with a few doses of Toradol last evening. She notes that she has started to have painful swelling and erythema along her R medial ankle that is developing. Allergies Allergy/AdvReac Type Severity Reaction Status Date / Time nickel Allergy Intermediate Rash Verified 11/12/22 16:13 sumatriptan AdvReac Severe CHEST Verified 11/12/22 16:13 PAIN, STIFF NECK doxycycline AdvReac Intermediate DIZZY-HAS Verified 11/12/22 16:13 HAD SINCE W/O ISSUES naproxen [From Aleve] AdvReac Intermediate Abdominal Verified 11/12/22 16:13 Pain Relpax TABS Allergy Severe Pain and Uncoded 11/12/22 16:13 heat in head, throat, and chest areas Home Medications Medication Instructions Recorded Confirmed Type ascorbic acid (vitamin C) 1,000 mg 1 tab PO HS 06/21/18 11/12/22 History tablet (Vitamin C) kviczxy-myaeriwbjytyx-uvzgydqu 250 2 tab PO Q6H PRN Migraine Headache 06/21/18 11/12/22 History mg-250 mg-65 mg tablet (Excedrin Migraine) cholecalciferol (vitamin D3) 125 5,000 unit PO HS 06/21/18 11/12/22 History mcg (5,000 unit) tablet (Vitamin D3) multivitamin 1 tab PO QAM 06/21/18 11/12/22 History coenzyme Q10 200 mg capsule (Co 100 mg PO HS 05/20/19 11/12/22 History Q-10) ibuprofen 200 mg tablet (Advil) 200 - 400 mg PO Q6H PRN Pain 09/02/19 11/12/22 History valacyclovir 1 gram tablet 2,000 mg PO Q12H PRN at onset of 11/04/19 11/12/22 Rx (Valtrex) symptoms. Repeat PRN #30 tabs docusate sodium 100 mg capsule 100 mg PO HS PRN Constipation 05/25/20 11/12/22 History (Colace) albuterol sulfate 90 mcg/actuation 2 puff inhalation QID PRN 11/23/20 11/12/22 Rx aerosol inhaler (ProAir HFA) Shortness Of Breath #18 grams lorazepam 0.5 mg tablet (Ativan) 0.5 mg PO BID PRN Anxiety #60 tabs 11/23/20 11/12/22 Rx rosuvastatin 20 mg tablet (Crestor) 20 mg PO HS 11/23/20 11/12/22 History amitriptyline 50 mg tablet 50 mg PO HS #90 tabs 06/12/22 11/12/22 Rx duloxetine 60 mg capsule,delayed 60 mg PO HS #90 caps 06/12/22 11/12/22 Rx release (Cymbalta) levothyroxine 88 mcg tablet 88 mcg PO QAM #90 tabs 06/12/22 11/12/22 Rx (Synthroid) metoprolol succinate 25 mg 37.5 mg PO HS 06/12/22 11/12/22 History tablet,extended release 24 hr pantoprazole 40 mg tablet,delayed 40 mg PO DAILY acid reflux #90 tabs 06/12/22 11/12/22 Rx release (Protonix) prednisone 10 mg tablet 10 mg PO .COMPLEX #38 tabs 11/04/22 11/12/22 Rx cephalexin 500 mg capsule 500 mg PO TID 7 days #21 caps 11/07/22 11/12/22 Rx meclizine 25 mg tablet 25 mg PO DAILY PRN Dizziness 11/07/22 11/12/22 History tramadol 50 mg tablet 50 mg PO DAILY #20 tabs 11/10/22 11/12/22 Rx cetirizine 10 mg capsule (Zyrtec) 10 mg PO DAILY PRN Congestion 11/12/22 11/12/22 History Past Med/Surg History Medical History Acid reflux Allergic rhinitis due to cats Allergic rhinitis due to dogs Allergic rhinitis due to pollen LAST RESCUE INHALER USE MONTHS AGO Anxiety Cancer BASAL CELL NECK AREA Chronic sinusitis Depression Diverticular disease Elevated C-reactive protein (CRP) Facet arthritis of cervical region Facet arthritis of lumbar region Gastric ulcer HX 4-5 YRS AGO-RESOLVED History of basal cell cancer History of COVID-19 DX'D 07/2020 URGENT CARE? [place]? BODY ACHES, SOB, HEADACHE, LOSS TASTE AND SMELL-RECOVERED AT HOME-ENDURED BRAIN FOG FOR AWHILE-RESOLVED Hyperlipidemia Hypertension Hypothyroidism Lumbar spondylosis Migraine headache Obesity Osteoarthritis Peptic ulcer disease Post traumatic stress disorder (PTSD) PVC's (premature ventricular contractions) Sensorineural hearing loss (SNHL) of left ear Sinus tachycardia F/U DR SUBHASH WEEKS Spondylolisthesis of lumbar region Tinnitus, left Vitamin D deficiency Surgical History H/O vaginal hysterectomy History of bilateral tubal ligation History of colonoscopy History of dilatation and curettage History of endoscopic sinus surgery History of esophagogastroduodenoscopy (EGD) History of tooth extraction S/P arthroscopy of left shoulder Family History Father Family hx of colon cancer Colorectal cancer Hypertension Grandfather (Maternal) , AGE 49 Diabetes Myocardial infarction Grandfather (Paternal) Diabetes Mother Glaucoma Hypertension Stroke Grandmother (Paternal) Diabetes Colorectal cancer Daughter Malignant melanoma Family history of reaction to anesthesia "VERY SLOW TO WAKE UP" Brother Myocardial infarction Denies family history of Ovarian cancer Prostate cancer Breast cancer Social History Smoking Status: Never smoker Second Hand Exposure: No; Hx Alcohol Use: Yes Alcohol type: wine Alcohol Intake Frequency: 2-3 x/Week Hx Substance Use: No Preferred Language: Cameroonian Communication Ability: Effective Visual Impairment: No Limitations Hearing Ability: Normal Cable Placer Required: No Beliefs That Will Affect Care: None marital status: Current Living Situation: Spouse current occupational status: employed Feels Safe at Home: Yes Childhood Exposure to Second-Hand Smoke: No Diet Comment: regular caffeine: Yes (coffee) during the past year weight has: remained stable Dental Care, Regularly: Yes Physical Activity Frequency: 3-4 Times per Week Physical Activity Frequency Comment: walking Seatbelt Use: always Sunscreen Use: Yes Assistive Devices: Crutches, Glasses and Other Review of Systems All systems reviewed & are unremarkable except as noted in HPI & below. Physical Exam General: Pleasant 57 y/o/f resting in bed in NAD. AAO x 4. Left foot: She has focal swelling around the IP joint with severe tenderness. No erythema or drainage. No motion at the IP joint, limited at the MP joint. Full ROM of L ankle w no swelling. Right ankle: Has a small tender erythematous area distal to her medial malleolus. No drainage, mild soft tissue swelling. Full ankle ROM. Distally N/V/I. Results & Data Results & Data Laboratory Results Reviewed . Diagnostic Findings MRI reviewed - Agree that there is inflammatory signal in the soft tissues of the L great toe consistent with cellulitis more diffuse inflammation. No fluid collection, abscess, bone marrow inflammatory signal consistent with osteomyelitis, or large joint effusion. There is a trace IP joint effusion however does not appear to be enough for reliable aspiration. PG Care Time/CCT Total # of Minutes Spent Total Time Spent with Patient: Total time spent is greater than 50% in coordination of care (as documented) at patient's floor/unit and/or counseling patient: Supervising Physician Co-Signing Physician Notes Patient was independently seen and evaluated. Her was at the bedside. I explained my interpretation MRI findings that there is a very small intraphalangeal joint effusion which I do not think would yield fluid on a spiration. Her MTP joint has an even smaller amount of fluid. Overall, my guess of this may be gout or some other inflammatory polyarthropathy. Her right ankle is more consistent with an inflammatory posterior tibial tendon process. There is no evidence of an ankle effusion to aspirate. Could consider advanced imaging of the ankle to evaluate the posterior tibial tendon. Unlikely to be ruptured based on her history. Overall I see very little role for orthopedic surgical intervention. Would recommend rheumatology input. Contact myself or Valentín Siegel PA-C via [place] text for further questions. Coding Level of Care Code 75006 IN/OBS CONSULT LVL 4,60M Diagnoses Pain of left great toe M79.675 Swollen joint M25.40
[2022-11-13] MEDS ORDERED: DOXYCYCLINE HYCLATE 100 MG CAP PO STA (16:02)
[2022-11-13] MEDS ORDERED: predniSONE 20 MG TAB PO STA (16:04)
--- NOTE | 2022-11-13 18:30 | Billing Data ---
Date of Service November 13, 2022 Coding Level of Care Code 41637 SUB INP/OBS CARE MIN
[2022-11-13] MEDS: DULoxetine HCL 60 MG CAP PO SCH (20:20)
[2022-11-13] MEDS: AMITRIPTYLINE HCL 50 MG TAB PO SCH (20:21)
[2022-11-13] MEDS: ASCORBIC ACID 500 MG TAB PO SCH (20:21)
[2022-11-13] MEDS: ROSUVASTATIN CALCIUM 20 MG TAB PO SCH (20:21)
[2022-11-13] MEDS: METOPROLOL SUCC 25MG EXT REL TAB PO SCH (20:21)
[2022-11-13] MEDS: CHOLECALCIFEROL 5,000 UNITS 125 MCG TAB PO SCH (20:21)
[2022-11-13] MEDS: DOXYCYCLINE HYCLATE 100 MG CAP PO SCH (20:35)
[2022-11-14] MEDS: LEVOTHYROXINE SODIUM 88 MCG TABLET PO SCH (05:48)
--- NOTE | 2022-11-14 05:50 | Electrocardiogram Report ---
Test Reason : Blood Pressure : / mmHG Vent. Rate : 089 BPM Atrial Rate : 089 BPM P-R Int : 128 ms QRS Dur : 080 ms QT Int : 352 ms P-R-T Axes : 042 010 014 degrees QTc Int : 428 ms Normal sinus rhythm Possible Left atrial enlargement Nonspecific T wave abnormality When compared with ECG of 02-SEP-2019 15:38, No significant change was found Confirmed by Omar Antony ([id number]) on 11/14/2022 5:50:12 AM Referred By: ED Confirmed By:Omar Antony
--- NOTE | 2022-11-14 07:06 | Discharge Summary ---
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 ~2wks ago started with L great toe pain - woke up maybe slightly sore, but when she went to take a walk at work her toe hurt so much she couldn't walk any further. this progressed and worsened over the last 2wks - although notes that at first she thinks it was the whole distal toe that was swollen, now it's the IP joint almost only - worsening in spite of NSAIDs, prednisone (40mg x5 days and now on a tapering dose but still at 30) and keflex (500mg TID started on 11/07). the day after her L great toe started swelling, she also had red areas of skin - ~3 patches about the size of a nickel, on the inside of her R ankle. during the last 2 wks, those areas have grown and coalesced into one large ~7cm round patch. hot and tender, "feels like a sunburn". again this worsening despite above treatment as well. no f/c/s. no other rashes or skin lesions. no other symptoms at all that she can relate - except for feeling dizzy - started about a day after starting prednisone, responded to meclizine. she is still taking the meclizine but hasn't really had recurrence. Wonders if it could be related to COVIDbut notes that she had COVID about 10 weeks ago for the second time, far more mild than the first time, and other than a degree of fatigue has really not had any lasting symptoms. seen 11/04 - suspected gout. prednisone, NSAIDs 11/07 added keflex 11/10 further w/u ordered, ongoing symptomatic control today sent to ER w/u 11/11 CBC normal except Hgb 11.9, ESR 67, CMP normal except glucose 122 (non fasting, on steroids), TSH 0.79, UA normal sp grav 1.020, incidentally a year ago TA, RF, CCP IgG neg 11/06 R ankle xray showing soft tissue swelling, no bony abnormality, L great toe Xray normal 11/07 venous doppler negative for DVT dawson in ER today showing similar labs to above, ESR 66, CRP 8.5; CTA just with soft tissue swelling noted but no vascular disease. was given rocephin but blood cultures taken prior Admission Exam Per Admitting Provider In general she is awake alert oriented pleasant no distress. HEENT normocephalic atraumatic mucous membranes moistno conjunctival or subungual lesions. Neck is supple. Cardio is regular without rubs murmurs or gallops. Lungs are clear to auscultation bilaterally no rales rhonchi or wheeze with good effort. Skin other than below under extremities has no other rashes, no pallor no icterus no streaks nodes or other lesions. Neuro shows cranial nerves II through XII be grossly intact gross motor and sensory intact. Ext remity/musculoskeletalher left great toe IP joint appears to be swollen and has a purplish red erythema, it is tender with restricted range of motion, the remainder of her toe actually appears benign and she has no tenderness at the MP joint. Medial to her right ankle and a little bit posterior to the malleolus there is about a 7 cm area of warm not quite erythematous salmon-colored skin that is tender with a mild degree of palpable swelling, but no underlying fluctuance. Principal Diagnosis Reactive arthritis/swollen joints Discharge Exam Constitutional WD/WN, vitals as above Eyes PERRL, conjunctivae normal, anicteric sclerae Respiratory normal respiratory effort, lungs clear to auscultation Cardiovascular RRR, no murmur, no edema Gastrointestinal (Abdomen) normal bowel sounds, soft, nontender, no hepatosplenomegaly Musculoskeletal Left great toe IP joint normal Improving erythematous swollen tender on the posterior aspect of the medial malleolus Psychiatric A+Ox3, euthymic affect Discharge Data Allergies Allergy/AdvReac Type Severity Reaction Status Date / Time nickel Allergy Intermediate Rash Verified 11/12/22 16:13 sumatriptan AdvReac Severe CHEST Verified 11/12/22 16:13 PAIN, STIFF NECK doxycycline AdvReac Intermediate DIZZY-HAS Verified 11/12/22 16:13 HAD SINCE W/O ISSUES naproxen [From Aleve] AdvReac Intermediate Abdominal Verified 11/12/22 16:13 Pain Relpax TABS Allergy Severe Pain and Uncoded 11/12/22 16:13 heat in head, throat, and chest areas Consultations 11/12/22 16:18 ED Decision to Admit Stat 11/12/22 20:36 Consult Orthopedic Surgery Routine Ordered Studies 11/12/22 13:10 CT ang AA runof w inc wo ifdon Stat 11/12/22 20:36 MRI Foot [MR foot LT w/o con] Routine Hospital Course (1) Swollen joint: Foot MRI showed soft tissue swelling because of her cellulitis. No definite ulceration or wound identified. No evidence of osteomyelitis, no fluid collection or abscess. CBC and CMP grossly benign. CRP was elevated at 8.4 which then decreased to 6.5 on 11/13. Ortho consulted and no joint aspiration was recommended at this time. Lyme was negative at this time. Though still may be likely the patient has Lyme if recent infection. Was on Keflex for a few days. We will start on doxycycline 100 mg twice daily and prednisone 40 mg on 11/13. Patient reexamined on 11/14 showed great improvement in swollen joints. Completely normal left great toe IP joint. We will continue on doxycycline 100 mg twice a day for 14 days and to follow- up with PCP regarding if continuing therapy is to be continued. Continue on steroid taper that was already sent in prior to admission. Received 40 mg of prednisone on 11/13. Should follow previous schedule. Follow-up with PCP within 1 week to discuss further treatment. (2) Skin rash: As above (3) Hypertension: Stable (4) Hypothyroidism: Recent TSH normal. Total Time Total Time Spent Total Time Spent (In Minutes): Less than 30 minutes Discharge Plan Discharge Items Patient Disposition: Home - Self-Care Reason For Visit: TOE PAIN/SWELLING - FAILED OUTPT TREATMENT Discharge Diagnosis: Reactive arthritis Activity: Resume your previous activity Non-emergency contact: Primary Care Provider Call non-emergency contact if: you have any medication questions, your pain is unusual for you, your temperature is above 101.5, your wound has increased redness, your wound has increased drainage and your wound pain has increased Follow-up/Referrals: Hailee Macias DO [Primary Care Provider] - 11/19/22 8:15 am (In 1 week APPOINTMENT WITH JUSTEN HWALEY) Diet: Regular Addtl Attending Provider Instructions: You were admitted to the hospital for reactive arthritis. You were treated with antibiotics and steroids. A discharge summary will be sent to your primary care physician to ensure continuity of care. Please bring this discharge summary with you to your next office appointment so that your provider can review it at that time. Follow-up appointments: * We have requested a follow-up appointment with your primary care physician within one week of discharge. Please call their office if you do not hear from them. Their number is [phone]. We have requested a appointment with rheumatology * We have requested an appointment with rheumatology in 1 month. Our nurse navigator will help set up that appointment with you. * Keep all your follow-up appointments as already scheduled. If you cannot make an appointment, notify your provider. Medications: Your medication list has been reviewed and reconciled upon discharge to ensure accuracy and continuity of care. An updated list of all your medications is included with your hospital discharge paperwork. Please review this list closely, and make note of any changes. * We sent a new medication called doxycycline to your pharmacy. Take doxycycline (100 mg) 1 tab twice a day for 14 days. Please follow-up with your PCP as you may require more antibiotics after these initial 14 days. * You recently filled a prescription for prednisone taper. Please continue to take taper as directed. * If you have any issues filling these prescriptions, please call [phone] and ask to leave a message for Dr. Wick. * Take your medications as instructed; do not skip a dose of your medicines. Make sure all of your doctors know every medicine you are taking (including jesa-nis-zbqraso medicines, vitamins, and supplements). Call your primary care provider before taking any new medicines (including over- the-counter medicines, vitamins, and supplements), because some of these may interact with your current medications, or may make your symptoms worse. Tell your primary care provider if you cannot afford your medications. CONTACT YOUR PRIMARY CARE PROVIDER if you experience any of the following: * Worsening of symptoms * Fever, chills, or fatigue * Difficulty following your treatment plan, or difficulty taking medications CALL 911 OR GO TO THE EMERGENCY DEPARTMENT if you experience any of the following: * Sudden, severe abdominal pain or nausea/vomiting * Severe chest pain, or chest pain that radiates (moves) to your jaw or arm * Sudden, severe shortness of breath or difficulty breathing Thank you for allowing us to participate in your care. Pending Studies at Discharge: No Stand-Alone Forms: [employer], Smoking Cessation Medications and DC Order Prescriptions: New doxycycline hyclate 100 mg Capsule 100 mg PO BID 13 Days Qty: 26 0RF Continued valacyclovir [Valtrex] 1 gram tablet 2,000 mg PO Q12H PRN (Reason: at onset of symptoms. Repeat PRN) Qty: 30 1RF coenzyme Q10 [Co Q-10] 200 mg capsule 100 mg PO HS rosuvastatin [Crestor] 20 mg tablet 20 mg PO HS albuterol sulfate [ProAir HFA] 90 mcg/actuation HFA aerosol inhaler 2 puff INHALATION QID PRN (Reason: Shortness Of Breath) Qty: 18 1RF lorazepam [Ativan] 0.5 mg tablet 0.5 mg PO BID PRN (Reason: Anxiety) Qty: 60 0RF metoprolol succinate 25 mg tablet extended release 24 hr 37.5 mg PO HS amitriptyline 50 mg tablet 50 mg PO HS Qty: 90 1RF duloxetine [Cymbalta] 60 mg capsule,delayed release(DR/EC) 60 mg PO HS Qty: 90 1RF levothyroxine [Synthroid] 88 mcg tablet 88 mcg PO QAM Qty: 90 1RF pantoprazole [Protonix] 40 mg tablet,delayed release (DR/EC) 40 mg PO DAILY Qty: 90 1RF meclizine 25 mg tablet 25 mg PO DAILY PRN (Reason: Dizziness) tramadol 50 mg tablet 50 mg PO DAILY Qty: 20 0RF Zyrtec 10 mg capsule 10 mg PO DAILY PRN (Reason: Congestion) prednisone 10 mg tablet 10 mg PO .COMPLEX Qty: 38 0RF Rx Instructions: STARTED 11/04/22 FOR 14 DAYS. Take PO Take 40 mg x 5 days, 30 mg x 3 days, 20 mg x 3 days, 10 mg x 3 day, then d/c. multivitamin Tablet 1 tab PO QAM ascorbic acid (vitamin C) [Vitamin C] 1,000 mg Tablet 1 tab PO HS Excedrin Migraine 250-250-65 mg Tablet 2 tab PO Q6H PRN (Reason: Migraine Headache) cholecalciferol (vitamin D3) [Vitamin D3] 5,000 unit Tablet 5,000 unit PO HS docusate sodium [Colace] 100 mg capsule 100 mg PO HS PRN (Reason: Constipation) ibuprofen [Advil] 200 mg Tablet 200 - 400 mg PO Q6H PRN (Reason: Pain) Discontinued cephalexin 500 mg capsule 500 mg PO TID 7 Days Qty: 21 0RF Rx Instructions: STARTED 11/07/22 FOR 7 DAYS. Discharge Orders: Discharge Order (Routine); Ordered 11/14/22 Ordered By: Leandro Wick Admission Data Admit Date/Time: 11/12/22 17:26 Attending Provider: Deepak Reyes Admit Provider: Deepak Reyes Primary Care Provider: Hailee Macias Other Providers: Deepak Reyes ; Chun Riley Other Interventions: Discharge Summary Assessment (RN) Last Done: 11/14/22 11:50 Supervising Physician Co-Signing Physician Notes I personally examined the patient and verified all monzon points of history and exam, discussed case, and agree with decision making with Dr Wick Toe feels remarkably better. Swelling down dramatically. Redness and tenderness on the medial right ankle also down a lot. Able to walk with far less pain. Feels up to going home. Vitals noted, in general she is awake and alert pleasant no distress. HEENT normocephalic atraumatic mucous membranes moist. Breathing unlabored no accessory muscle use good effort. Skin/MSKher left great toe is dramatically less swollen than yesterday, just a little bit around the IP joint (which, again, on review of MRI must be more skin than joint given that no significant effusion was seen) and the salmon-colored patch on her medial right ankle is faded and far less tender. Toe pain and swelling, rash medial ankleimproved dramatically on doxycycline. Suspect Lyme, versus other atypical infectious. Safe/stable for home on doxycyclinepresumptive 14 days. I did ask our nurse navigator to preemptively set her up with rheumatology for about 2 weeks from now, because if she were to worsen/fail to improve/rebound, then rheumatology evaluation would be warrantedgiven that it seems that some of this did respond to steroids better than initially suspected (and yet at the same time, it all seems skin related given lack of significant joint effusions on detailed investigationso if it rebounds, dermatology may also be a reasonable route). That said, hopefully she is simply going to improve to better and to be able to be off of all treatments. Outpatient PCP follow-up. Resident Activity Tracking Resident Involvement: Resident Care Provided Care Provided: Adult [facility] Medicine
[2022-11-14] MEDS: IBUPROFEN 200 MG TAB PO PRN (08:07)
[2022-11-14] MEDS ORDERED: predniSONE 20 MG TAB PO SCH (09:00)
[2022-11-14] MEDS: PANTOprazole 40 MG TAB PO SCH (10:04)
[2022-11-14] MEDS: DOXYCYCLINE HYCLATE 100 MG CAP PO SCH (10:04)
[2022-11-14] MEDS: MULTIVITAMIN TAB PO SCH (10:04)
[2022-11-14] MEDS: traMADol HCL 50 MG TABLET PO SCH (10:07)
--- NOTE | 2022-11-14 19:39 | Billing Data ---
Date of Service November 14, 2022 Coding Level of Care Code 19618 IN/OBS DISCH 30 MIN/LESS
== END 2022-11-14 13:33 | disposition home or self-care (01) ==
LOC: ED 12:26 → 3E 12:26